=== PATIENT | male | born 1940 | race Caucasian/White ===

== ENCOUNTER → 2016-11-09 | Day surgery (SDC) | payer OTHER ==
[2016-11-06 10:58] VITALS: BMI 25.0
[~2016-11-09] VITALS: Ht 167.6 cm; Wt 70.5 kg
[~2016-11-09] MED LIST: LIDOCAINE HCL 2% 2 ML VIAL (20MG/ML) ONE; LOVA40TA4 PO; METO25TA3 PO; PROPOFOL IV EMULSION 10 MG/ML 20 ML VIAL IV ONE; SODIUM CHLORIDE 0.9% 500ML 500 ML IV ONE
[2016-11-09 09:02] VITALS: Ht 167.6 cm; Wt 70.5 kg
--- NOTE | 2016-11-09 09:32 | Endo History and Physical ---
History & Physical Date of Service: Nov 09, 2016. Chief Complaint: ROUTINE SCREENING Referring Physician: VICKI ALLEN History of Present Illness Average risk screening for colorectal cancer Past Medical History Anxiety, High Cholesterol Past Surgical History Hx Cardiac Surgery: No Hx Internal Defibrillator: No Hx Pacemaker: No Hx Abdominal Surgery: Yes (APPY) Hx of Implantable Prosthesis: No Hx Post-Op Nausea and Vomiting: No Hx Cancer Surgery: No Hx Thoracic Surgery: No Hx Orthopedic: Yes (RT HIP REPAIR S/P BREAK, LT HAND MIDDLE FINGER REPAIR S/P TRAUMA) Hx Urinary Tract Surgery: Yes (LITHOTRIPSY, URETAL STENT PLACEMENT AND REMOVAL) Family History None Social History Smoking Status: Former Smoker Hx Substance Use: No Hx Alcohol Use: No Allergies Coded Allergies: Alprazolam (Verified Allergy, Unknown, UNKNOWN, 11/09/16) Hydromorphone (Verified Allergy, Unknown, SEVERE GI UPSET, BAD HEADACHE, ) Current Medications Reported Home Medications Medications Dose Route/Sig Max Daily Dose Days Date Category Toprol-Xl (Metoprolol Succinate) 25 Mg Tabcr 25 Mg PO QAM 11/06/16 Reported Mevacor (Lovastatin) 40 Mg Tab 40 Mg PO QPM 10/22/10 Reported Vital Signs Weight (Kilograms): 70.45 Height (Feet): 5 Height (Inches): 6 Date Time Temp Pulse Resp B/P Pulse Ox O2 Delivery O2 Flow Rate FiO2 11/09/16 09:13 36.6 112 20 166/87 96 Room Air Physical Exam General Appearance: WD/WN, no apparent distress Respiratory/Chest: Auscultation: breath sounds normal, no wheezing Cardiovascular: Heart Auscultation: RRR, no murmurs Abdomen: Inspection & Palpation: soft, no tenderness, guarding & rebound Assessment and Plan Cleared for colonoscopy.
--- NOTE | 2016-11-09 10:18 | GI REPORT ---
Procedure Date: 11/09/2016 9:16 AM Procedure: Colonoscopy Indications: Screening for colorectal malignant neoplasm, Last colonoscopy: 2004 Medicines: Monitored Anesthesia Care Complications: No immediate complications. Estimated blood loss: None. Estimated Blood Loss: Estimated blood loss: none. Procedure: Pre-Anesthesia Assessment: - Prior to the procedure, a History and Physical was performed, and patient medications, allergies and sensitivities were reviewed. The patient's tolerance of previous anesthesia was reviewed. - ASA Grade Assessment: III - A patient with severe systemic disease. After I obtained informed consent, the scope was passed under direct vision. Throughout the procedure, the patient's blood pressure, pulse, and oxygen saturations were monitored continuously. The Scope was introduced through the anus and advanced to the terminal ileum, with identification of the appendiceal orifice and IC valve. The patient tolerated the procedure well. The quality of the bowel preparation was excellent. The bowel preparation used was split dose MIralax. The colonoscopy was performed with difficulty due to restricted mobility of the colon and a tortuous colon. Successful completion of the procedure was aided by withdrawing the scope and replacing with the pediatric colonoscope. Findings: A 2 mm polyp was found in the cecum. The polyp was sessile. The polyp was removed with a cold snare. Resection and retrieval were complete. Two sessile polyps were found in the ascending colon. The polyps were 3 to 4 mm in size. These polyps were removed with a cold snare. Resection and retrieval were complete. A 4 mm polyp was found at the hepatic flexure. The polyp was sessile. The polyp was removed with a cold snare. Resection and retrieval were complete. A 3 mm polyp was found in the descending colon. The polyp was sessile. The polyp was removed with a cold snare. Polyp resection was incomplete, and the resected tissue was not retrieved. Multiple diverticula were found in the sigmoid colon. Internal hemorrhoids were found during retroflexion. The hemorrhoids were medium-sized. Verification of patient identification for the specimens was done by the physician and nurse using the patient's name, date and medical record number. Impression: - One 2 mm polyp in the cecum, removed with a cold snare. Resected and retrieved. - Two 3 to 4 mm polyps in the ascending colon, removed with a cold snare. Resected and retrieved. - One 4 mm polyp at the hepatic flexure, removed with a cold snare. Resected and retrieved. - One 3 mm polyp in the descending colon, removed with a cold snare. Incomplete resection. Resected tissue not retrieved. - Diverticulosis in the sigmoid colon. - Internal hemorrhoids. Recommendation: - Await pathology results. - Discharge patient to home (with escort). Silvino Rodriguez M.D. Silvino Rodriguez MD 11/09/2016 10:17:47 AM This report has been signed electronically. Note Initiated On: 11/09/2016 9:16 AM
--- NOTE | 2016-11-09 10:18 | Discharge Instructions ---
Endoscopy Patient Instructions Date / Procedure(s) Performed Nov 09, 2016. Colonoscopy Allergy Information Coded Allergies: Alprazolam (Verified Allergy, Unknown, UNKNOWN, 11/09/16) Hydromorphone (Verified Allergy, Unknown, SEVERE GI UPSET, BAD HEADACHE, ) Discharge Date / Findings Nov 09, 2016. Colon polyps, diverticulosis, internal hemorrhoids. Medication Instructions Restart Stopped Medication(s): Restart all medications today Provider Instructions Activity Restrictions - No exercising or heavy lifting for 24 hours. - Do not drink alcohol the day of the procedure. - Do not drive a car or operate machinery until the day after the procedure. - Do not make any important decisions or sign important papers in 24 hours after the procedure. Following Day: - Return to full activity which may include returning to work/school. Diet Start your diet with liquids and light foods (jello, soup, juice, toast). Then eat your usual diet if not nauseated. Treatment For Common After Affects For mild abdominal pain, bloating, or excessive gas: - Rest - Eat lightly - Lie on right side Follow-Up Information Follow-up with VICKI WALTON as scheduled We will contact you with pathology results. Anesthesia Information What You Should Know You have had a procedure that required some medicine to reduce anxiety and discomfort. This treatment is called moderate sedation. After receiving the treatment, you may be sleepy, but you will be able to breathe on your own. The effects of the treatment may last for several hours. Follow these instructions along with Activity/Diet recommendations noted above: * Do NOT do anything where dizziness or clumsiness would be dangerous. * Rest quietly at home today, then you can be up and about tomorrow. * Have a responsible person stay with you the rest of today. * You may have had an I.V. today. If so, you may take the dressing off later today. Recommendations Call your doctor if: * Trouble breathing * Continuous vomiting for more than 24 hours * Temperature above 101 degrees * Severe abdominal pain or bloating * Pain not relieved by pain medicine ordered * There is increased drainage or redness from any incision * A large amount of rectal bleeding greater than 2-3 tablespoons. (If you had a polyp/s removed or have hemorrhoids, a small amount of blood - from the rectum is to be expected.) * You have any unanswered questions or concerns. IN THE EVENT OF A SERIOUS EMERGENCY, GO TO THE NEAREST EMERGENCY ROOM Your discharge instructions were prepared by provider Silvino Rodriguez. Patient Instructions Signature Page Belgica Walton Patient (or Guardian) Signature/Date: I have read and understand the instructions given to me by my caregivers. Caregiver/RN/Doctor Signature/Date: The above-named patient and/or guardian has received patient instructions on this date. + Original Patient Signature Page (only) stays with chart. Please make copy for patient.
[2016-11-09 10:46] VITALS: BP 136/80; PULSE 85; O2SAT 97
--- NOTE | 2016-11-09 10:50 | Anesthesiology Progress Note ---
Anesthesia Post Op Note Date & Time Nov 09, 2016 at 10:49 Vital Signs Pain Intensity: 0 Vital Signs Past 12 Hours Date Time Temp Pulse Resp B/P Pulse Ox O2 Delivery O2 Flow Rate FiO2 11/09/16 10:31 85 16 133/78 98 Room Air 11/09/16 10:16 87 16 147/80 97 Room Air 11/09/16 09:13 36.6 112 20 166/87 96 Room Air Notes Mental Status: alert / awake / arousable, participated in evaluation Pt Amnestic to Procedure: Yes Nausea / Vomiting: adequately controlled Pain: adequately controlled Airway Patency, RR, SpO2: stable & adequate BP & HR: stable & adequate Hydration State: stable & adequate Anesthetic Complications: no major complications apparent
== END | disposition home or self-care (01) ==
LOC: C.GI 08:47
PROVIDERS: ATTEND Internal Medicine Gastroenterology
DX: Z12.11 Encounter for screening for malignant neoplasm of colon (principal); D12.0 Benign neoplasm of cecum; D12.2 Benign neoplasm of ascending colon; D12.3 Benign neoplasm of transverse colon; D12.4 Benign neoplasm of descending colon; K57.30 Diverticulosis of large intestine without perforation or abscess without bleeding; K64.8 Other hemorrhoids; E78.00 Pure hypercholesterolemia, unspecified; F41.9 Anxiety disorder, unspecified; Z98.890 Other specified postprocedural states; Z87.891 Personal history of nicotine dependence

== ENCOUNTER 2017-11-16 10:56 | Emergency (ER) | payer OTHER ==
[~2017-11-16] VITALS: Ht 167.6 cm; Wt 71.7 kg
[~2017-11-16 10:56] MED LIST changes: -LIDOCAINE HCL 2% 2 ML VIAL (20MG/ML) ONE; -PROPOFOL IV EMULSION 10 MG/ML 20 ML VIAL IV ONE; -SODIUM CHLORIDE 0.9% 500ML 500 ML IV ONE
[2017-11-16 11:01] VITALS: TEMP 36.6; Ht 167.6 cm; Wt 71.7 kg
[2017-11-16] MEDS ORDERED: SODIUM CHLORIDE 0.9% 1000ML 500 ML IV ONE (11:19)
[2017-11-16 11:48] LABS: HEMATOCRIT 46.3 % (42-52); HEMOGLOBIN 15.6 g/dL (14.0-18.0); MEAN CELL VOLUME 82.4 fL (80-100); MEAN CORPUSCULAR HEMOGLOBIN 27.8 pg (25-34); MEAN CORPUSCULAR HGB CONC 33.7 g/dl (32-36); MEAN PLATELET VOLUME 9.8 fL (7.4-10.4); PLATELET COUNT 254 K/uL (130-400); RED CELL DISTRIBUTION WIDTH CV 14.5 % (11.5-14.5); RED CELL DISTRIBUTION WIDTH SD 43.6 fL (36.4-46.3); WHITE BLOOD COUNT 13.76 K/uL (4.8-10.8)
--- NOTE | 2017-11-16 11:48 | EMERGENCY ROOM VISIT NOTE ---
History First contact with patient: 11:30 Chief Complaint: KIDNEY STONE Stated Complaint: KIDNEY STONE PAIN History of Present Illness The patient is a 77 year old male who presents to the Emergency Room with complaints of "I think I have a kidney stone". The patient states he has a history of kidney stones, always on the left. This morning at approximately 8: 30, he began experiencing pain in the left lower abdomen. He states this pain is exactly the same as pain in his appearance of prior stones. He states the pain began at a 7/10, but since he has been here, the pain has improved. He describes the discomfort as constant and dull, but intermittently, he experiences sharp "jabs". He has not seen a urologist in several years, however has seen [facility] in the past. The patient denies any urinary symptoms including hematuria, pain with urination, increased urinary frequency, or urinary hesitancy. He denies recent illness or fever. He states he is not experiencing any chest pain, dyspnea, diarrhea, or constipation. There is no tenderness when the patient pushes on the abdomen. Review of Systems A complete 10 point review of systems was reviewed with the patient with pertinent positives and negatives as per history of present illness. All else were negative. Past Medical/Surgical History Medical Problems: (1) Inguinal hernia (2) Kidney stone Social History Smoking Status: Never Smoker Smokeless Tobacco Use: No Alcohol Use: none Drug Use: none Marital Status: Housing Status: lives with significant other Occupation Status: retired Current/Historical Medications Scheduled Lovastatin (Mevacor), 40 MG PO QPM Metoprolol Succ (Toprol Xl) (Toprol-Xl), 25 MG PO QAM Physical Exam Vital Signs Date Time Temp Pulse Resp B/P (MAP) Pulse Ox O2 Delivery O2 Flow Rate FiO2 11/16/17 14:39 84 26 152/70 96 Room Air 11/16/17 14:30 82 14 142/97 94 Room Air 11/16/17 13:59 76 20 131/77 97 Room Air 11/16/17 12:04 68 20 156/81 96 Room Air 11/16/17 11:01 36.6 75 18 170/84 95 Room Air Physical Exam VITALS: Vitals are noted on the nurse's note and reviewed by myself. Vital signs stable. GENERAL: This is a 77-year-old white male, in no acute distress, nondiaphoretic , well-developed well-nourished. SKIN: The skin was without rashes, erythema, edema, or bruising. There is no tenting of the skin. Capillary reflex less than 2 seconds. HEAD: Normocephalic atraumatic. EARS: External auditory canals clear, tympanic membranes pearly jean without erythema or effusion bilaterally. EYES: Pupils equal round and reactive to light and accommodation. Conjunctivae without injection, sclerae without icterus. Extraocular movements intact. NOSE: Patent, turbinates without inflammation or discharge. No sinus tenderness. MOUTH: Mucous membranes moist. Tonsils are not enlarged. Pharynx without erythema or exudate. Uvula midline. Airway patent. Tongue does not deviate. NECK: Supple without nuchal rigidity. No lymphadenopathy. No thyromegaly. Cervical spine is nontender. No JVD. HEART: Regular rate and rhythm without murmurs gallops or rubs. LUNGS: Clear to auscultation bilaterally without wheezes, rales or rhonchi. No dullness to percussion. No retractions or accessory muscle use. ABDOMEN: Positive bowel sounds x 4. Normal tympanic percussion. Soft, nontender, without masses or organomegaly. Sharp sign negative. No guarding or rebound tenderness. No CVA tenderness bilaterally. MUSCULOSKELETAL: No muscle atrophy, erythema, or edema noted. Full range of motion without joint tenderness in all extremities. No tenderness to palpation. Normal gait. Strength 5/5 throughout. NEURO: Patient was alert and oriented to person place and time. Normal sensation to light and sharp touch. Deep tendon reflexes 2+ throughout. No focal neurological deficits. Medical Decision & Procedures ER Provider Diagnostic Interpretation: CBC showed very mild leukocytosis of 13,000. This was without anemia or thrombocytopenia. Urinalysis was positive for blood and red blood cells. There were also epithelial cells noted, but no signs of infection. PRP was without significant renal, hepatic, electrolyte abnormalities. KUB HISTORY: left flank pain, hematuria COMPARISON: KUB 01/23/2011. FINDINGS: The bowel gas pattern is unremarkable. There are no dilated loops of small bowel to suggest an obstruction. Punctate calcification overlying the lower pole of the left kidney. No right renal calculi. No definite ureteral calculi. Calcifications in the deep pelvis are nonspecific but favor phleboliths. There is a screw within the right femoral neck, unchanged. Suture material within the left groin. No pneumoperitoneum or pneumatosis. IMPRESSION: Left-sided nephrolithiasis. No ureteral calculi. Electronically signed by: Mango rBand M.D. 11/16/2017 1:45 PM Dictated Date/Time: 11/16/2017 1:43 PM Laboratory Results 11/16/17 11:15 11/16/17 11:15 Test 11/16/17 11:15 Red Blood Count 5.62 M/uL (4.7-6.1) Mean Corpuscular Volume 82.4 fL (80-100) Mean Corpuscular Hemoglobin 27.8 pg (25-34) Mean Corpuscular Hemoglobin Concent 33.7 g/dl (32-36) RDW Standard Deviation 43.6 fL (36.4-46.3) RDW Coefficient of Variation 14.5 % (11.5-14.5) Mean Platelet Volume 9.8 fL (7.4-10.4) Urine Color YELLOW Urine Appearance CLEAR (CLEAR) Urine pH 5.0 (4.5-7.5) Urine Specific [place] 1.025 (1.000-1.030) Urine Protein NEG (NEG) Urine Glucose (UA) 2+ (NEG) Urine Ketones NEG (NEG) Urine Occult Blood 2+ (NEG) Urine Nitrite NEG (NEG) Urine Bilirubin NEG (NEG) Urine Urobilinogen NEG (NEG) Urine Leukocyte Esterase NEG (NEG) Urine WBC (Auto) 1-5 /hpf (0-5) Urine RBC (Auto) 10-30 /hpf (0-4) Urine Hyaline Casts (Auto) 1-5 /lpf (0-5) Urine Epithelial Cells (Auto) 10-20 /lpf (0-5) Urine Bacteria (Auto) NEG (NEG) Anion Gap 6.0 mmol/L (3-11) Est Creatinine Clear Calc Drug Dose 46.9 ml/min Estimated GFR () 68.8 Estimated GFR (Non- 59.4 BUN/Creatinine Ratio 22.2 (10-20) Calcium Level 9.0 mg/dl (8.5-10.1) Medications Administered Medications (Trade) Dose Ordered Sig/Lonnie Route Start Time Stop Time Status Last Admin Dose Admin Sodium Chloride 500 ml @ 999 mls/hr Q31M ONCE IV 11/16/17 11:19 11/16/17 11:49 DC 11/16/17 11:33 999 MLS/HR ED Course Critical pathways were initiated. IV access was obtained and labs were drawn. Urine was collected and sent to the lab. The patient was seen and evaluated as above. I did offer pain medication, but the patient declines at this time. Previous medical records were reviewed. The patient does have a history of kidney stones which do often appear on KUB. KUB ordered and performed. I discussed results of all testing with the patient and his at bedside. The patient states he has dealt with similar circumstances before, and does wish to go home instead of having CT scan performed. Discussed the case with Dr. Sloan, who is in agreement. Plan. He did see and evaluate the patient. Discharge instructions reviewed, and patient was discharged home in good condition. Medical Decision Etiologies such as renal colic, appendicitis, diverticulitis, mesenteric ischemia, aortic pathology, infections, inflammatory bowel disease, PUD, biliary pathology, UTI, as well as others were entertained. This is a 77-year-old male patient with a past medical history of multiple kidney stones, always on the left side, who presents to the emergency department today complaining of left lower abdominal pain and left flank pain which began this morning. The patient states this pain is consistent with previous kidney stones. Urinalysis was significant for blood, but KUB did not show any obvious ureteral stone. I do suspect that the patient had recently passed a stone, however I did offer CT scanning to the patient to know for sure. The patient declined this, and states as he has been pain-free since he has been in the emergency department, he agrees that he will likely pass the stone. He doesn't really have an appointment scheduled with his PCP for next week, so would like to follow up outpatient with them. I do feel that this is reasonable, given the patient's labs, imaging, and symptoms at this time. Medication Reconcilliation Current Medication List: was personally reviewed by me Blood Pressure Screening Patient's blood pressure: Normal blood pressure Impression Primary Impression: Left flank pain Additional Impressions: Renal colic Nephrolithiasis Departure Information Dispostion Home / Self-Care Condition GOOD Referrals Tess Dc D.Conrad. (PCP) Munod Garcia MD, Urology Patient Instructions ED Stone Renal Passed, [facility] Additional Instructions You have been treated in the Emergency Department today for a Kidney Stone ( Nephrolithiasis). For pain control, you can use the following puty-nyh-amhhwrr medicines (if >12 yo): Ibuprofen(Motrin, Advil) may be used for fever or pain. Use 400mg every six hours as needed. Take with food. Avoid using more than 2400mg in a 24 hour period. Do not use 2400mg per day for more than three consecutive days without physician direction. Prolonged inappropriate use can lead to stomach upset or ulcers. (AND/OR) Acetaminophen(Tylenol) may be used for fever or pain. Use 1000mg every six hours as needed. Avoid using more than 3000mg in a 24 hour period. You have been provided a strainer and specimen collection cup. You should strain your urine to collect any passed stones. Your stones can be placed into the specimen cup and taken to your Urologist for further evaluation. You have been provided the contact information for the on-call Urologist. You should contact the Urologist's office tomorrow to establish a follow-up appointment from today's Emergency Department visit unless your PCP directs you otherwise. Please follow-up with your PCP regarding the pain. Return to the Emergency Department if your symptoms persist despite the treatment plan outlined above or if you develop the following symptoms: intractable pain, fever, chills, or large amounts of blood in your urine. Problem Qualifiers
[2017-11-16 12:05] LABS: CREATININE 1.17 mg/dl (0.60-1.40); POTASSIUM 4.2 mmol/L (3.5-5.1)
--- NOTE | 2017-11-16 13:47 | DIAGNOSTIC IMAGING REPORT ---
KUB HISTORY: left flank pain, hematuria COMPARISON: KUB 01/23/2011. FINDINGS: The bowel gas pattern is unremarkable. There are no dilated loops of small bowel to suggest an obstruction. Punctate calcification overlying the lower pole of the left kidney. No right renal calculi. No definite ureteral calculi. Calcifications in the deep pelvis are nonspecific but favor phleboliths. There is a screw within the right femoral neck, unchanged. Suture material within the left groin. No pneumoperitoneum or pneumatosis. IMPRESSION: Left-sided nephrolithiasis. No ureteral calculi. Electronically signed by: Mango Brand M.D. 11/16/2017 1:45 PM Dictated Date/Time: 11/16/2017 1:43 PM
[2017-11-16 14:39] VITALS: BP 152/70; PULSE 84; O2SAT 96
--- NOTE | 2017-11-16 18:23 | EMERGENCY ROOM VISIT NOTE ---
ED Visit Note First contact with patient: 11:30 I have personally evaluated and examined this patient. I agree with assessment and plan of La Stuart PA-C. Resolved flank pain with blood in urine likely a passed stone. Reviewed RTED if worsening or other concerns.
== END 2017-11-16 15:02 | disposition home or self-care (01) ==
LOC: C.EDB 10:57 → C.EDC 15:02
DX: N20.0 Calculus of kidney (principal); N23 Unspecified renal colic; Z87.442 Personal history of urinary calculi; Z79.899 Other long term (current) drug therapy

== ENCOUNTER → 2017-12-25 | Day surgery (SDC) | payer OTHER ==
[2017-12-18 08:34] VITALS: BMI 25.0
[~2017-12-25] VITALS: Ht 167.6 cm; Wt 70.5 kg
[~2017-12-25] MED LIST changes: +LIDOCAINE HCL 2% 2 ML VIAL (20MG/ML) ONE; +PROPOFOL IV EMULSION 10 MG/ML 20 ML VIAL IV ONE; +RANI150T85 PO
[2017-12-25 07:56] VITALS: Ht 167.6 cm; Wt 70.5 kg
--- NOTE | 2017-12-25 08:28 | Endo History and Physical ---
History & Physical Date of Service: Dec 25, 2017. Chief Complaint: GERD DYSPHAGIA Referring Physician: DR. DAVEY REESE History of Present Illness Reflux, dysphagia Past Medical History Anxiety, High Cholesterol Past Surgical History Hx Cardiac Surgery: No Hx Internal Defibrillator: No Hx Pacemaker: No Hx Abdominal Surgery: Yes (APPY) Hx of Implantable Prosthesis: No Hx Post-Op Nausea and Vomiting: No Hx Cancer Surgery: No Hx Thoracic Surgery: No Hx Orthopedic: Yes (RT HIP REPAIR S/P BREAK, LT HAND MIDDLE FINGER REPAIR S/P TRAUMA) Hx Urinary Tract Surgery: Yes (LITHOTRIPSY, URETAL STENT PLACEMENT AND REMOVAL) Family History None Social History Smoking Status: Former Smoker Hx Substance Use: No Hx Alcohol Use: No Allergies Coded Allergies: Alprazolam (Verified Allergy, Unknown, WITHDRAWAL SYNDROME RECORDED IN RECORD, 12/25/17) Hydromorphone (Verified Allergy, Unknown, SEVERE GI UPSET, BAD HEADACHE, ) Current Medications Reported Home Medications Medications Dose Route/Sig Max Daily Dose Days Date Category Zantac (Ranitidine HCl) 150 Mg Tab 150 Mg PO BID 12/18/17 Reported Toprol-Xl (Metoprolol Succinate) 25 Mg Tabcr 25 Mg PO QAM 11/06/16 Reported Mevacor (Lovastatin) 40 Mg Tab 40 Mg PO QPM 10/22/10 Reported Vital Signs Weight (Kilograms): 70.45 Height (Feet): 5 Height (Inches): 6 Date Time Temp Pulse Resp B/P (MAP) Pulse Ox O2 Delivery O2 Flow Rate FiO2 12/25/17 08:10 36.7 74 16 134/83 (100) 97 Room Air Physical Exam General Appearance: WD/WN, no apparent distress Respiratory/Chest: Auscultation: breath sounds normal, no wheezing Cardiovascular: Heart Auscultation: RRR, no murmurs Assessment and Plan EGD with dilation today
--- NOTE | 2017-12-25 09:02 | GI REPORT ---
Procedure Date: 12/25/2017 8:34 AM Procedure: Upper GI endoscopy Indications: Dysphagia, Suspected esophageal reflux Medicines: Monitored Anesthesia Care Complications: No immediate complications. Estimated blood loss: None. Estimated Blood Loss: Estimated blood loss: none. Procedure: Pre-Anesthesia Assessment: - Prior to the procedure, a History and Physical was performed, and patient medications, allergies and sensitivities were reviewed. The patient's tolerance of previous anesthesia was reviewed. - ASA Grade Assessment: II - A patient with mild systemic disease. After obtaining informed consent, the endoscope was passed under direct vision. Throughout the procedure, the patient's blood pressure, pulse, and oxygen saturations were monitored continuously. The scope was introduced through the mouth, and advanced to the third part of duodenum. The upper GI endoscopy was accomplished with ease. The patient tolerated the procedure well. Findings: No endoscopic abnormality was evident in the esophagus to explain the patient's complaint of dysphagia. It was decided, however, to proceed with dilation of the entire esophagus. A guidewire was placed and the scope was withdrawn. Dilation was performed with a Savary dilator with no resistance at 16 mm and 18 mm. The Z-line was regular and was found 39 cm from the incisors. Biopsies were taken with a cold forceps for histology. A small hiatal hernia was present. The entire examined stomach was normal. Biopsies were taken with a cold forceps for Helicobacter pylori testing. The examined duodenum was normal. Verification of patient identification for the specimens was done by the physician and nurse using the patient's name, date and medical record number. Impression: - No endoscopic esophageal abnormality to explain patient's dysphagia. Esophagus dilated. Dilated. - Z-line regular, 39 cm from the incisors. Biopsied. - Small hiatal hernia. - Normal stomach. Biopsied. - Normal examined duodenum. Recommendation: - Observe patient's clinical course. - Continue present medications. - Await pathology results. - Discharge patient to home (with escort). Silvino Rodriguez M.D. Silvino Rodriguez MD 12/25/2017 9:01:40 AM This report has been signed electronically. Note Initiated On: 12/25/2017 8:34 AM I attest to the content of the Intraoperative Record and orders documented therein, exceptions below
--- NOTE | 2017-12-25 09:03 | Discharge Instructions ---
Endoscopy Patient Instructions Date / Procedure(s) Performed Dec 25, 2017. EGD Allergy Information Coded Allergies: Alprazolam (Verified Allergy, Unknown, WITHDRAWAL SYNDROME RECORDED IN RECORD, 12/25/17) Hydromorphone (Verified Allergy, Unknown, SEVERE GI UPSET, BAD HEADACHE, ) Discharge Date / Findings Dec 25, 2017. Small hiatal hernia Medication Instructions Restart Stopped Medication(s): Restart all medications Provider Instructions Activity Restrictions - No exercising or heavy lifting for 24 hours. - Do not drink alcohol the day of the procedure. - Do not drive a car or operate machinery until the day after the procedure. - Do not make any important decisions or sign important papers in 24 hours after the procedure. Following Day: - Return to full activity which may include returning to work/school. Diet Start your diet with liquids and light foods (jello, soup, juice, toast). Then eat your usual diet if not nauseated. Treatment For Common After Affects For mild abdominal pain, bloating, or excessive gas: - Rest - Eat lightly - Lie on right side Follow-Up Information Follow-up with DR. DAVEY REESE as scheduled Anesthesia Information What You Should Know You have had a procedure that required some medicine to reduce anxiety and discomfort. This treatment is called moderate sedation. After receiving the treatment, you may be sleepy, but you will be able to breathe on your own. The effects of the treatment may last for several hours. Follow these instructions along with Activity/Diet recommendations noted above: * Do NOT do anything where dizziness or clumsiness would be dangerous. * Rest quietly at home today, then you can be up and about tomorrow. * Have a responsible person stay with you the rest of today. * You may have had an I.V. today. If so, you may take the dressing off later today. Recommendations Call your doctor if: * Trouble breathing * Continuous vomiting for more than 24 hours * Temperature above 101 degrees * Severe abdominal pain or bloating * Pain not relieved by pain medicine ordered * There is increased drainage or redness from any incision * A large amount of rectal bleeding greater than 2-3 tablespoons. (If you had a polyp/s removed or have hemorrhoids, a small amount of blood - from the rectum is to be expected.) * You have any unanswered questions or concerns. IN THE EVENT OF A SERIOUS EMERGENCY, GO TO THE NEAREST EMERGENCY ROOM Your discharge instructions were prepared by provider Silvino Rodriguez. Patient Instructions Signature Page Belgica Walton Patient (or Guardian) Signature/Date: I have read and understand the instructions given to me by my caregivers. Caregiver/RN/Doctor Signature/Date: The above-named patient and/or guardian has received patient instructions on this date. + Original Patient Signature Page (only) stays with chart. Please make copy for patient.
--- NOTE | 2017-12-25 09:20 | Anesthesiology Progress Note ---
Anesthesia Post Op Note Date & Time Dec 25, 2017 at 09:20 Vital Signs Pain Intensity: 0 Vital Signs Past 12 Hours Date Time Temp Pulse Resp B/P (MAP) Pulse Ox O2 Delivery O2 Flow Rate FiO2 12/25/17 09:11 75 16 121/69 (86) 97 Room Air 12/25/17 08:56 75 16 108/63 (78) 97 Room Air 12/25/17 08:10 36.7 74 16 134/83 (100) 97 Room Air Notes Mental Status: alert / awake / arousable, participated in evaluation Pt Amnestic to Procedure: Yes Nausea / Vomiting: adequately controlled Pain: adequately controlled Airway Patency, RR, SpO2: stable & adequate BP & HR: stable & adequate Hydration State: stable & adequate Anesthetic Complications: no major complications apparent
[2017-12-25 09:25] VITALS: BP 118/66; PULSE 71; O2SAT 97
== END | disposition home or self-care (01) ==
LOC: C.GI 07:33
PROVIDERS: ATTEND Internal Medicine Gastroenterology
DX: R13.10 Dysphagia, unspecified (principal); K44.9 Diaphragmatic hernia without obstruction or gangrene; K21.0 Gastro-esophageal reflux disease with esophagitis; E78.5 Hyperlipidemia, unspecified; Z88.5 Allergy status to narcotic agent; Z88.0 Allergy status to penicillin; Z90.49 Acquired absence of other specified parts of digestive tract; Z87.891 Personal history of nicotine dependence